=== PATIENT | female | born 2000 | race Caucasian/White ===

== ENCOUNTER 2023-03-12 19:11 | Emergency (ER) | payer OTHER ==
[~2023-03-12] VITALS: Ht 149.9 cm; Wt 89.8 kg
[2023-03-12] MEDS ORDERED: LAMICTAL200 MG PO (19:31)
[2023-03-12] MEDS ORDERED: TRI-SPRINTEC T1 EACH PO (19:32)
== END 2023-03-12 22:41 | disposition home or self-care (01) ==
LOC: ER 19:11
DX: J06.9 Acute upper respiratory infection, unspecified (principal); Z20.822 Contact with and (suspected) exposure to COVID-19